=== PATIENT | female | born 1935 | race Two or more races ===

== ENCOUNTER 2023-11-27 21:33 | Inpatient (IN) | payer MEDICARE, OTHER ==
[~2023-11-27] VITALS: Ht 165.1 cm; Wt 60.8 kg
[2023-11-27 22:14] LABS: BASOPHILS % (AUTO) 0.7 % (0.0-2.0); EOSINOPHILS # (AUTO) 0.2 K/uL (0.0-0.7); EOSINOPHILS % (AUTO) 4.2 % (0.0-6.0); HEMATOCRIT 30 % (33-45); HEMOGLOBIN 9.3 g/dL (11.5-14.8); LYMPHOCYTES # (AUTO) 1.1 K/uL (0.8-4.8); LYMPHOCYTES % (AUTO) 19.6 % (20.0-44.0); MEAN CORPUSCULAR HEMOGLOBIN 22 PG (26.0-33.0); MEAN CORPUSCULAR HGB CONC 31 g/dl (31.0-36.0); MEAN CORPUSCULAR VOLUME 70 fL (82-100); MONOCYTES # (AUTO) 0.5 K/uL (0.1-1.30); MONOCYTES % (AUTO) 8.5 % (2.0-12.0); NEUTROPHILS # (AUTO) 3.7 K/uL (1.8-8.9); PLATELET COUNT (AUTO) 265 K/uL (150-450); RED BLOOD CELL COUNT(AUTO) 4.29 MIL/uL (4.0-5.2); RED CELL DISTRIBUTION WIDTH 17.5 % (11.5-15.0); WHITE BLOOD COUNT (AUTO) 5.6 K/uL (4.3-11.0)
[2023-11-27 22:30] LABS: CALCIUM, SERUM 8.5 mg/dL (8.5-10.1); CARBON DIOXIDE 31 mmol/L (21-32); CHLORIDE 108 mmol/L (98-107); CREATININE 0.8 mg/dL (0.6-1.3); GLUCOSE 101 mg/dL (74-106); POTASSIUM 4.8 mmol/L (3.5-5.1); SODIUM SERUM 142 mmol/L (136-145); UREA NITROGEN, BLOOD 24 mg/dL (7-18)
[2023-11-27 22:37] LABS: INR 1.21 (0.91-1.10); PARTIAL THROMBOPLASTIN TIME 33.6 SEC (24.3-34.3); PROTHROMBIN TIME 12.4 SECS (9.2-11.1); SERUM AMMONIA 17 umol/L (11-32)
[2023-11-27 22:38] LABS: LACTIC ACID 0.9 mmol/L (0.4-2.0)
[2023-11-27 22:45] LABS: ACETAMINOPHEN 1 ug/ml (10-30); ALANINE AMINOTRANSFERASE 19 U/L (12-78); ALBUMIN 2.1 g/dL (3.4-5.0); ALCOHOL, BLOOD < 3 mg/dL (0-10); ALKALINE PHOSPHATASE 131 U/L (46-116); ASPARTATE AMINOTRANSFERASE 16 U/L (15-37); BILIRUBIN,DIRECT 0.1 mg/dL (0.0-0.2); BILIRUBIN,TOTAL 0.4 mg/dL (0.2-1.0); SALICYLATE 0.5 mg/dL (2.8-20.0); TOTAL PROTEIN, SERUM 5.8 g/dL (6.4-8.2)
[2023-11-27 23:58] LABS: ABG BASE EXCESS 4.2 mmol/L; ABG OXYGEN SATURATION 94.4 % (92.0-98.5); ABG PCO2 41.4 mmHg (35.0-45.0); ABG PH 7.455 (7.350-7.450); ABG PO2 71.7 mmHg (75.0-100.0); ABG TOTAL HEMOGLOBIN 9.6 G/dL (12.0-16.0); COHb 0.3 % (0.5-1.5); MetHb 0.4 % (0.0-1.5); O2Hb 93.7 % (94.0-97.0); SITE, ABG Left Radial
[2023-11-28] VITALS (73 sets, daily range): BP systolic 80–128; BP diastolic 48–95; TEMP 97.6–99.1; O2SAT 92–100
[2023-11-28] MEDS: IV NS 0.9% 1,000 ML IV ONE (00:27)
[2023-11-28 00:29] LABS: APPEARANCE,URINE CLEAR (CLEAR); BILIRUBIN,URINE NEGATIVE (NEGATIVE); BLOOD, URINE NEGATIVE Ery/uL (NEGATIVE); COLOR,URINE YELLOW (YELLOW); KETONES,URINE NEGATIVE (NEGATIVE); LEUKOCYTE ESTERASE ,URINE 1+ (NEGATIVE); NITRITE, URINE NEGATIVE (NEGATIVE); PROTEIN,URINE NEGATIVE (NEGATIVE); UGLUCOSE NEGATIVE (NEGATIVE); UROBILINOGEN,URINE 0.2 EU/dL (0.2)
[2023-11-28 00:32] LABS: ADD URINE CULTURE YES; BACTERIA,URINE Rare /HPF (None Seen); SQUAMOUS EPITHELIAL CELL,UR Few /HPF (None Seen)
[2023-11-28 00:36] LABS: AMPHETAMINE, URINE NEGATIVE (NEGATIVE); BARBITURATE, URINE NEGATIVE (NEGATIVE); BENZODIAZEPINE, URINE NEGATIVE (NEGATIVE); CANNABINOID, URINE NEGATIVE (NEGATIVE); COCCAINE, URINE NEGATIVE (NEGATIVE); OPIATE, URINE NEGATIVE (NEGATIVE); PHENCYCLIDINE SCREEN,URINE NEGATIVE (NEGATIVE)
[2023-11-28] MEDS ORDERED: NOREPINEPHRINE 8MG/250ML RTU 250 ML IV ONE (01:40)
[2023-11-28] MEDS ORDERED: NOREPINEPHRINE 8 MG in IV D5W 242 ML IV PRN ×2 (02:00→02:30)
[2023-11-28] MEDS ORDERED: ONDANSETRON HCL/PF 4 MG/2 ML VIAL IVP PRN (02:30)
[2023-11-28] MEDS ORDERED: MAGNESIUM HYDROXIDE 30 ML UDC PO PRN (02:30)
[2023-11-28] MEDS ORDERED: MAG HYDROX/AL HYDROX/SIMETH 30 ML UDC PO PRN (02:30)
[2023-11-28] MEDS ORDERED: Z GUARD REMEDY 4 OZ OINT TP PRN (02:30)
[2023-11-28] MEDS ORDERED: LOSA25TA27 GT (02:43)
[2023-11-28] MEDS ORDERED: ASCO-352 GT (02:43)
[2023-11-28] MEDS ORDERED: LORA-259 GT (02:43)
[2023-11-28] MEDS ORDERED: CHLO473M5 PO (02:43)
[2023-11-28] MEDS ORDERED: DOCU100C36 GT (02:43)
[2023-11-28] MEDS ORDERED: FERR220S2 GT (02:43)
[2023-11-28] MEDS ORDERED: APIX2.5T GT (02:43)
[2023-11-28] MEDS ORDERED: METO25TA6 GT (02:43)
[2023-11-28] MEDS ORDERED: MIRT7.5T10 GT (02:43)
[2023-11-28] MEDS ORDERED: MELA5TAB21 GT (02:43)
[2023-11-28] MEDS ORDERED: FURO-145 GT (02:43)
[2023-11-28] MEDS ORDERED: DIGO125T GT (02:43)
[2023-11-28] MEDS ORDERED: MULT1CAP44 GT (02:43)
[2023-11-28] MEDS ORDERED: FOLI0.4T6 GT (02:43)
[2023-11-28] MEDS ORDERED: CRAN250C GT (02:43)
[2023-11-28] MEDS ORDERED: CHOL5POW GT (02:43)
[2023-11-28] MEDS ORDERED: PANT40TA49 GT (02:43)
[2023-11-28] MEDS ORDERED: PIPERACI/TAZO 3.375GM/D5W 50ML PB IV ONE (02:56)
[2023-11-28] MEDS: ZOSYN IVPB 3.375 G in IV D5W 50ml IV ONE (02:57)
[2023-11-28] MEDS ORDERED: VANCOMYCIN 1 GM /D5W 250 ML PB IV ONE (03:51)
[2023-11-28] MEDS: VANCOMYCIN 1 GM in IV D5W 250ml IV ONE (03:53)
[2023-11-28] MEDS: PHENYLEPHRINE 10 MG/ML VIAL ONE (05:25)
[2023-11-28] MEDS: PHENYLEPHRINE 50 MG in IV NS 0.9% 245 ML IV PRN (05:34)
[2023-11-28] MEDS: LOSARTAN POTASSIUM 25 MG TABLET GT SCH (08:48)
[2023-11-28] MEDS: METOPROLOL TARTRATE 25 MG TABLET PO SCH ×2 (08:48→21:00)
[2023-11-28] MEDS: DIGOXIN 0.125 MG TABLET GT SCH (08:56)
[2023-11-28] MEDS: FUROSEMIDE 20 MG TABLET GT SCH (08:57)
[2023-11-28] MEDS: APIXABAN 2.5 MG TABLET GT SCH ×2 (08:57→21:09)
[2023-11-28] MEDS: FOLIC ACID 1 MG TABLET GT SCH (08:57)
[2023-11-28] MEDS: FERROUS SULFATE UDC 300 MG/5 ML UDC GT SCH (08:57)
[2023-11-28] MEDS: MULTIVIT W/MINERALS 1 TAB TABLET GT SCH (08:57)
[2023-11-28] MEDS: CHOLESTYRAMINE/ASPARTAME 4 G/PKT PACKET GT SCH (08:57)
[2023-11-28] MEDS: ASCORBIC ACID 500 MG TABLET GT SCH (08:57)
[2023-11-28] MEDS ORDERED: Medication Not On Formulary EA (Cranberry Extract (Cranberry) 450 MG) GT SCH (09:00)
[2023-11-28] MEDS: CHLORHEXIDINE GLUCONATE 15 ML UDC MM SCH ×2 (09:07→21:10)
[2023-11-28] MEDS ORDERED: BISA10SU11 RC (09:21)
[2023-11-28] MEDS ORDERED: ACET325T53 GT (09:21)
[2023-11-28] MEDS ORDERED: ALBU2.5V38 IH (09:21)
[2023-11-28] MEDS ORDERED: ACET-73 GT (09:21)
[2023-11-28] MEDS ORDERED: PANT40SU2 GT (09:21)
[2023-11-28 12:14] LABS: CALCIUM, SERUM 9.3 mg/dL (8.5-10.1); CARBON DIOXIDE 23 mmol/L (21-32); CHLORIDE 104 mmol/L (98-107); GLUCOSE 102 mg/dL (74-106); POTASSIUM 4.5 mmol/L (3.5-5.1); SODIUM SERUM 140 mmol/L (136-145); UREA NITROGEN, BLOOD 22 mg/dL (7-18)
[2023-11-28 12:15] LABS: CREATININE 0.7 mg/dL (0.6-1.3)
[2023-11-28 12:50] LABS: IRON, SERUM 17 ug/dl (50-175); TOTAL IRON BINDING CAPACITY 222 ug/dl (250-450)
[2023-11-28] MEDS ORDERED: PIPERACILLIN /TAZOBACTAM 3.375 G in IV D5W 50 ML IV SCH (13:00)
[2023-11-28 13:44] LABS: FERRITIN 290 ng/mL (8-388)
[2023-11-28] MEDS: HYDROCORTISONE SOD SUCCINATE 100 MG/2 ML VIAL IV SCH (13:49)
[2023-11-28] MEDS: PIPERACILLIN /TAZOBACTAM 3.375 G in IV D5W 100 ML IV SCH (13:50)
[2023-11-28] MEDS: IV D5/0.45 NACL 1,000 ML IV SCH (14:30)
[2023-11-28] MEDS ORDERED: MIRTAZAPINE 15 MG TABLET GT SCH (18:00)
[2023-11-28] MEDS: MIRTAZAPINE 15 MG TABLET GT SCH (21:00)
[2023-11-28] MEDS: DOCUSATE SODIUM LIQ 100 MG/10 ML UDC GT SCH (21:15)
[2023-11-28] MEDS ORDERED: MELATONIN 3 MG TABLET GT SCH (22:00)
[2023-11-28] MEDS ORDERED: DOCUSATE SODIUM 100 MG CAPSULE PO SCH (22:00)
[2023-11-29] VITALS (37 sets, daily range): BP systolic 87–115; BP diastolic 54–87; TEMP 98.1–99.4; O2SAT 93–100
[2023-11-29] MEDS: ACETAMINOPHEN 650 MG/SUPP.RECT RC PRN (03:37)
[2023-11-29] MEDS: VANCOMYCIN 1 GM in IV D5W 250ml IV SCH (03:38)
[2023-11-29 04:44] LABS: BASOPHILS % (AUTO) 0.2 % (0.0-2.0); HEMATOCRIT 29 % (33-45); HEMOGLOBIN 9.2 g/dL (11.5-14.8); LYMPHOCYTES # (AUTO) 0.9 K/uL (0.8-4.8); MEAN CORPUSCULAR HEMOGLOBIN 22 PG (26.0-33.0); MEAN CORPUSCULAR HGB CONC 32 g/dl (31.0-36.0); MEAN CORPUSCULAR VOLUME 70 fL (82-100); MONOCYTES # (AUTO) 0.1 K/uL (0.1-1.30); MONOCYTES % (AUTO) 2.5 % (2.0-12.0); NEUTROPHILS # (AUTO) 2.7 K/uL (1.8-8.9); NEUTROPHILS % (AUTO) 73.3 % (43.0-81.0); PLATELET COUNT (AUTO) 258 K/uL (150-450); RED BLOOD CELL COUNT(AUTO) 4.13 MIL/uL (4.0-5.2); RED CELL DISTRIBUTION WIDTH 17.8 % (11.5-15.0); WHITE BLOOD COUNT (AUTO) 3.7 K/uL (4.3-11.0)
[2023-11-29 05:35] LABS: CALCIUM, SERUM 8.7 mg/dL (8.5-10.1); CARBON DIOXIDE 25 mmol/L (21-32); CHLORIDE 106 mmol/L (98-107); CREATININE 0.9 mg/dL (0.6-1.3); GLUCOSE 142 mg/dL (74-106); MAGNESIUM 2.2 mg/dL (1.8-2.4); PHOSPHORUS 4.4 mg/dL (2.5-4.9); POTASSIUM 4.9 mmol/L (3.5-5.1); SODIUM SERUM 138 mmol/L (136-145); UREA NITROGEN, BLOOD 31 mg/dL (7-18)
[2023-11-29] MEDS: JEVITY 1.2 CAL 1,000 ML BOTTLE GT SCH (09:44)
[2023-11-30] VITALS (21 sets, daily range): BP systolic 91–117; BP diastolic 41–90; TEMP 97.3–98.7; O2SAT 99–100
[2023-11-30 04:29] LABS: BASOPHILS % (AUTO) 0.3 % (0.0-2.0); HEMATOCRIT 30 % (33-45); HEMOGLOBIN 9.2 g/dL (11.5-14.8); LYMPHOCYTES # (AUTO) 0.7 K/uL (0.8-4.8); LYMPHOCYTES % (AUTO) 12.6 % (20.0-44.0); MEAN CORPUSCULAR HEMOGLOBIN 22 PG (26.0-33.0); MEAN CORPUSCULAR HGB CONC 31 g/dl (31.0-36.0); MEAN CORPUSCULAR VOLUME 70 fL (82-100); MONOCYTES # (AUTO) 0.2 K/uL (0.1-1.30); MONOCYTES % (AUTO) 3.6 % (2.0-12.0); NEUTROPHILS # (AUTO) 4.7 K/uL (1.8-8.9); NEUTROPHILS % (AUTO) 83.5 % (43.0-81.0); PLATELET COUNT (AUTO) 275 K/uL (150-450); RED CELL DISTRIBUTION WIDTH 17.9 % (11.5-15.0); WHITE BLOOD COUNT (AUTO) 5.6 K/uL (4.3-11.0)
[2023-11-30 04:57] LABS: CALCIUM, SERUM 8.4 mg/dL (8.5-10.1); CARBON DIOXIDE 25 mmol/L (21-32); CHLORIDE 103 mmol/L (98-107); CREATININE 1.1 mg/dL (0.6-1.3); GLUCOSE 181 mg/dL (74-106); MAGNESIUM 2.2 mg/dL (1.8-2.4); PHOSPHORUS 4.3 mg/dL (2.5-4.9); SODIUM SERUM 138 mmol/L (136-145); UREA NITROGEN, BLOOD 42 mg/dL (7-18)
[2023-11-30] MEDS: LORAZEPAM 1 MG TABLET GT PRN (12:55)
[2023-12-01] VITALS (30 sets, daily range): BP systolic 80–131; BP diastolic 48–96; TEMP 97.9–98.6; O2SAT 97–100
[2023-12-01 07:32] LABS: BASOPHILS % (AUTO) 0.1 % (0.0-2.0); HEMATOCRIT 31 % (33-45); HEMOGLOBIN 9.6 g/dL (11.5-14.8); LYMPHOCYTES % (AUTO) 12.1 % (20.0-44.0); MEAN CORPUSCULAR HEMOGLOBIN 22 PG (26.0-33.0); MEAN CORPUSCULAR HGB CONC 32 g/dl (31.0-36.0); MEAN CORPUSCULAR VOLUME 70 fL (82-100); MONOCYTES # (AUTO) 0.8 K/uL (0.1-1.30); MONOCYTES % (AUTO) 9.5 % (2.0-12.0); NEUTROPHILS # (AUTO) 6.4 K/uL (1.8-8.9); NEUTROPHILS % (AUTO) 78.3 % (43.0-81.0); PLATELET COUNT (AUTO) 270 K/uL (150-450); RED BLOOD CELL COUNT(AUTO) 4.36 MIL/uL (4.0-5.2); RED CELL DISTRIBUTION WIDTH 17.5 % (11.5-15.0); WHITE BLOOD COUNT (AUTO) 8.2 K/uL (4.3-11.0)
[2023-12-01 07:41] LABS: CALCIUM, SERUM 8.3 mg/dL (8.5-10.1); CARBON DIOXIDE 28 mmol/L (21-32); CHLORIDE 102 mmol/L (98-107); GLUCOSE 157 mg/dL (74-106); POTASSIUM 4.6 mmol/L (3.5-5.1); SODIUM SERUM 137 mmol/L (136-145); UREA NITROGEN, BLOOD 40 mg/dL (7-18)
[2023-12-01] MEDS: IV NS 0.9% 500 ML BAG IV ONE (16:16)
[2023-12-02] VITALS (58 sets, daily range): BP systolic 87–125; BP diastolic 56–88; TEMP 98.3–98.6; O2SAT 96–100
[2023-12-02 07:51] LABS: BASOPHILS % (AUTO) 0.3 % (0.0-2.0); EOSINOPHILS # (AUTO) 0.1 K/uL (0.0-0.7); EOSINOPHILS % (AUTO) 0.6 % (0.0-6.0); HEMATOCRIT 33 % (33-45); HEMOGLOBIN 10.3 g/dL (11.5-14.8); LYMPHOCYTES # (AUTO) 2.5 K/uL (0.8-4.8); LYMPHOCYTES % (AUTO) 24.8 % (20.0-44.0); MEAN CORPUSCULAR HEMOGLOBIN 22 PG (26.0-33.0); MEAN CORPUSCULAR HGB CONC 32 g/dl (31.0-36.0); MEAN CORPUSCULAR VOLUME 71 fL (82-100); MONOCYTES # (AUTO) 1.3 K/uL (0.1-1.30); MONOCYTES % (AUTO) 13.1 % (2.0-12.0); NEUTROPHILS # (AUTO) 6.2 K/uL (1.8-8.9); NEUTROPHILS % (AUTO) 61.2 % (43.0-81.0); PLATELET COUNT (AUTO) 390 K/uL (150-450); RED BLOOD CELL COUNT(AUTO) 4.64 MIL/uL (4.0-5.2); RED CELL DISTRIBUTION WIDTH 18.3 % (11.5-15.0); WHITE BLOOD COUNT (AUTO) 10.2 K/uL (4.3-11.0)
[2023-12-02 09:44] LABS: ANISOCYTOSIS 1+; EOSINOPHILS % (MANUAL) 1 % (0-4); HYPOCHROMASIA 1+; LYMPHOCYTES % (MANUAL) 25 % (16-48); MONOCYTES % (MANUAL) 13 % (0-11.0); NEUTROPHILS % (MANUAL) 61 (42-76); PLATELET ESTIMATE ADEQUATE
[2023-12-02 09:45] LABS: OVALOCYTES 1+
[2023-12-02 11:59] LABS: CALCIUM, SERUM 7.7 mg/dL (8.5-10.1); CARBON DIOXIDE 27 mmol/L (21-32); CHLORIDE 103 mmol/L (98-107); CREATININE 0.9 mg/dL (0.6-1.3); GLUCOSE 109 mg/dL (74-106); POTASSIUM 4.4 mmol/L (3.5-5.1); SODIUM SERUM 138 mmol/L (136-145); UREA NITROGEN, BLOOD 38 mg/dL (7-18)
[2023-12-02] MEDS: HYDROCORTISONE SOD SUCCINATE 100 MG/2 ML VIAL IV SCH (12:32)
[2023-12-03] VITALS (33 sets, daily range): BP systolic 87–120; BP diastolic 50–84; TEMP 97.1–98.6; O2SAT 94–100
[2023-12-03 05:10] LABS: HEMATOCRIT 32 % (33-45); HEMOGLOBIN 9.7 g/dL (11.5-14.8); LYMPHOCYTES # (AUTO) 1.2 K/uL (0.8-4.8); LYMPHOCYTES % (AUTO) 22.4 % (20.0-44.0); MEAN CORPUSCULAR HEMOGLOBIN 22 PG (26.0-33.0); MEAN CORPUSCULAR HGB CONC 31 g/dl (31.0-36.0); MEAN CORPUSCULAR VOLUME 72 fL (82-100); MONOCYTES # (AUTO) 0.1 K/uL (0.1-1.30); MONOCYTES % (AUTO) 2.7 % (2.0-12.0); NEUTROPHILS # (AUTO) 3.9 K/uL (1.8-8.9); NEUTROPHILS % (AUTO) 74.9 % (43.0-81.0); PLATELET COUNT (AUTO) 259 K/uL (150-450); RED BLOOD CELL COUNT(AUTO) 4.43 MIL/uL (4.0-5.2); RED CELL DISTRIBUTION WIDTH 18.2 % (11.5-15.0); WHITE BLOOD COUNT (AUTO) 5.3 K/uL (4.3-11.0)
[2023-12-03 07:57] LABS: CALCIUM, SERUM 7.6 mg/dL (8.5-10.1); CARBON DIOXIDE 20 mmol/L (21-32); CHLORIDE 104 mmol/L (98-107); CREATININE 0.9 mg/dL (0.6-1.3); GLUCOSE 160 mg/dL (74-106); POTASSIUM 5.1 mmol/L (3.5-5.1); SODIUM SERUM 134 mmol/L (136-145); UREA NITROGEN, BLOOD 41 mg/dL (7-18)
[2023-12-04] VITALS: BP 119/78; TEMP 98.1; O2SAT 100
[2023-12-04] MEDS: IV NS 0.9% 1,000 ML IV PRN (02:20)
[2023-12-04 04:00] VITALS: BP 139/86; TEMP 97.9; O2SAT 100
[2023-12-04 08:00] VITALS: BP 122/83; TEMP 97.5; O2SAT 99
[2023-12-04 12:00] VITALS: BP 108/76; TEMP 97.7; O2SAT 99
[2023-12-04 16:00] VITALS: BP 131/80; TEMP 98.2; O2SAT 97
[2023-12-04 20:00] VITALS: BP 111/67; TEMP 98.1; O2SAT 99
[2023-12-05] VITALS: BP 103/72; TEMP 97.7; O2SAT 97
[2023-12-05 04:00] VITALS: BP 121/74; TEMP 98; O2SAT 98
[2023-12-05 07:14] LABS: BASOPHILS % (AUTO) 0.2 % (0.0-2.0); HEMATOCRIT 31 % (33-45); HEMOGLOBIN 9.9 g/dL (11.5-14.8); LYMPHOCYTES # (AUTO) 0.7 K/uL (0.8-4.8); LYMPHOCYTES % (AUTO) 10.8 % (20.0-44.0); MEAN CORPUSCULAR HEMOGLOBIN 22 PG (26.0-33.0); MEAN CORPUSCULAR HGB CONC 32 g/dl (31.0-36.0); MEAN CORPUSCULAR VOLUME 70 fL (82-100); MONOCYTES # (AUTO) 0.2 K/uL (0.1-1.30); MONOCYTES % (AUTO) 3.3 % (2.0-12.0); NEUTROPHILS # (AUTO) 5.4 K/uL (1.8-8.9); NEUTROPHILS % (AUTO) 85.7 % (43.0-81.0); PLATELET COUNT (AUTO) 248 K/uL (150-450); RED BLOOD CELL COUNT(AUTO) 4.46 MIL/uL (4.0-5.2); RED CELL DISTRIBUTION WIDTH 18.1 % (11.5-15.0); WHITE BLOOD COUNT (AUTO) 6.3 K/uL (4.3-11.0)
[2023-12-05 07:39] LABS: CARBON DIOXIDE 24 mmol/L (21-32); CHLORIDE 104 mmol/L (98-107); GLUCOSE 140 mg/dL (74-106); POTASSIUM 3.9 mmol/L (3.5-5.1); SODIUM SERUM 137 mmol/L (136-145); UREA NITROGEN, BLOOD 39 mg/dL (7-18)
[2023-12-05 08:00] VITALS: BP 96/70; TEMP 98; O2SAT 98
[2023-12-05 10:16] LABS: EOSINOPHILS % (MANUAL) 0 % (0-4); LYMPHOCYTES % (MANUAL) 8 % (16-48); MONOCYTES % (MANUAL) 0 % (0-11.0); NEUTROPHILS % (MANUAL) 91 (42-76); PLATELET ESTIMATE ADEQUATE; REACTIVE LYMPHOCYTES 1 % (0-0)
[2023-12-05 12:00] VITALS: BP 121/88; TEMP 97.9; O2SAT 100
[2023-12-05 16:00] VITALS: BP 115/76; TEMP 97.9; O2SAT 100
[2023-12-05] MEDS ORDERED: ANESTHESIA TRAY IN PYXIS 1 EA TRAY MC ONE (16:10)
[2023-12-05] MEDS: HYDROCORTISONE SOD SUCCINATE 100 MG/2 ML VIAL IV SCH (17:00)
[2023-12-05] MEDS: IV NS 0.9% 1,000 ML IV PRN (17:06)
[2023-12-05 20:00] VITALS: BP 128/89; TEMP 98.9; O2SAT 100
[2023-12-05] MEDS: PANTOPRAZOLE 40 MG VIAL IV ONE (21:39)
[2023-12-05] MEDS: GLUCERNA 1.2 1,000 ML BOTTLE NG PRN (21:47)
[2023-12-06] VITALS (7 sets, daily range): BP systolic 108–122; BP diastolic 61–86; TEMP 96.8–98.9; O2SAT 93–99
[2023-12-06 03:30] LABS: CALCIUM, SERUM 7.8 mg/dL (8.5-10.1); CARBON DIOXIDE 26 mmol/L (21-32); CHLORIDE 106 mmol/L (98-107); GLUCOSE 114 mg/dL (74-106); POTASSIUM 3.4 mmol/L (3.5-5.1); SODIUM SERUM 138 mmol/L (136-145); UREA NITROGEN, BLOOD 39 mg/dL (7-18)
[2023-12-06] MEDS: PANTOPRAZOLE 40 MG VIAL IV SCH (09:14)
[2023-12-06] MEDS: POTASSIUM CL. PREMIX PERIPHER. 50 ML IV SCH (10:10)
[2023-12-06] MEDS: VANCOMYCIN 1 GM in IV D5W 250ml IV SCH (17:36)
[2023-12-06] MEDS ORDERED: MAGNESIUM HYDROXIDE 30 ML UDC GT PRN (17:41)
[2023-12-06] MEDS ORDERED: MAG HYDROX/AL HYDROX/SIMETH 30 ML UDC GT PRN (17:41)
[2023-12-07] VITALS: BP 118/70; TEMP 98; O2SAT 98
[2023-12-07 04:00] VITALS: BP 123/70; TEMP 98.2; O2SAT 98
[2023-12-07 07:29] VITALS: O2SAT 100
[2023-12-07 07:59] LABS: BASOPHILS % (AUTO) 0.3 % (0.0-2.0); EOSINOPHILS % (AUTO) 0.3 % (0.0-6.0); HEMATOCRIT 32 % (33-45); HEMOGLOBIN 9.9 g/dL (11.5-14.8); LYMPHOCYTES # (AUTO) 1.2 K/uL (0.8-4.8); LYMPHOCYTES % (AUTO) 11.8 % (20.0-44.0); MEAN CORPUSCULAR HEMOGLOBIN 22 PG (26.0-33.0); MEAN CORPUSCULAR HGB CONC 31 g/dl (31.0-36.0); MEAN CORPUSCULAR VOLUME 71 fL (82-100); MONOCYTES # (AUTO) 0.9 K/uL (0.1-1.30); MONOCYTES % (AUTO) 8.2 % (2.0-12.0); NEUTROPHILS # (AUTO) 8.4 K/uL (1.8-8.9); NEUTROPHILS % (AUTO) 79.4 % (43.0-81.0); PLATELET COUNT (AUTO) 196 K/uL (150-450); RED BLOOD CELL COUNT(AUTO) 4.51 MIL/uL (4.0-5.2); RED CELL DISTRIBUTION WIDTH 18.9 % (11.5-15.0); WHITE BLOOD COUNT (AUTO) 10.6 K/uL (4.3-11.0)
[2023-12-07 08:00] VITALS: BP 126/64; TEMP 97.9; O2SAT 98
[2023-12-07 08:14] LABS: CALCIUM, SERUM 7.3 mg/dL (8.5-10.1); CARBON DIOXIDE 23 mmol/L (21-32); CHLORIDE 108 mmol/L (98-107); CREATININE 0.9 mg/dL (0.6-1.3); GLUCOSE 133 mg/dL (74-106); MAGNESIUM 2.1 mg/dL (1.8-2.4); PHOSPHORUS 2.9 mg/dL (2.5-4.9); POTASSIUM 3.5 mmol/L (3.5-5.1); SODIUM SERUM 141 mmol/L (136-145); UREA NITROGEN, BLOOD 33 mg/dL (7-18)
[2023-12-07 12:00] VITALS: BP 135/65; TEMP 97.3; O2SAT 100
[2023-12-07] MEDS ORDERED: DOXY-326 PO (13:26)
[2023-12-07] MEDS ORDERED: AMOX-427 PO (13:26)
[2023-12-07] MEDS ORDERED: HYDR-4316 PO (13:31)
== END 2023-12-07 14:16 | DRG 870 ==
LOC: ER 21:35 → ICU 11-28 01:59 → TELE1 11-30 16:32 → ICU 12-01 17:28 → TELE1 12-03 17:26
PROVIDERS: ATTEND Nurse Practitioner Acute Care
PROC: 5A1955Z Respiratory Ventilation, Greater than 96 Consecutive Hours (ICD-10-PCS; principal; 2023-11-28)
PROC: 0DH63UZ Insertion of Feeding Device into Stomach, Percutaneous Approach (ICD-10-PCS; 2023-12-05)
DX: A41.9 Sepsis, unspecified organism (principal); J96.21 Acute and chronic respiratory failure with hypoxia; G93.41 Metabolic encephalopathy; E43 Unspecified severe protein-calorie malnutrition; I50.43 Acute on chronic combined systolic (congestive) and diastolic (congestive) heart failure; N18.6 End stage renal disease; I13.2 Hypertensive heart and chronic kidney disease with heart failure and with stage 5 chronic kidney disease, or end stage renal disease; D68.59 Other primary thrombophilia; K94.23 Gastrostomy malfunction; F01.53 Vascular dementia, unspecified severity, with mood disturbance; F01.54 Vascular dementia, unspecified severity, with anxiety; R57.9 Shock, unspecified; J90 Pleural effusion, not elsewhere classified; J98.11 Atelectasis; N17.9 Acute kidney failure, unspecified; Z99.11 Dependence on respirator [ventilator] status; K62.89 Other specified diseases of anus and rectum; K29.70 Gastritis, unspecified, without bleeding; I48.91 Unspecified atrial fibrillation; K26.9 Duodenal ulcer, unspecified as acute or chronic, without hemorrhage or perforation; Y83.3 Surgical operation with formation of external stoma as the cause of abnormal reaction of the patient, or of later complication, without mention of misadventure at the time of the procedure; Y92.129 Unspecified place in nursing home as the place of occurrence of the external cause; R13.10 Dysphagia, unspecified; Z74.01 Bed confinement status; F41.9 Anxiety disorder, unspecified; F32.A Depression, unspecified; F39 Unspecified mood [affective] disorder; I25.10 Atherosclerotic heart disease of native coronary artery without angina pectoris; I27.20 Pulmonary hypertension, unspecified; J44.9 Chronic obstructive pulmonary disease, unspecified; Z79.01 Long term (current) use of anticoagulants; Z79.899 Other long term (current) drug therapy; M20.41 Other hammer toe(s) (acquired), right foot; E86.0 Dehydration; D50.9 Iron deficiency anemia, unspecified; E88.09 Other disorders of plasma-protein metabolism, not elsewhere classified; E78.5 Hyperlipidemia, unspecified; M89.8X9 Other specified disorders of bone, unspecified site
CPT/HCPCS: 31720; 36415; 36600; 43246; 70450-TC; 71045-TC; 71250-TC; 76604-TC; 80048-TC; 80076-TC; 80202-TC; 81001; 82140-TC; 82533; 82728-TC; 82803-TC; 82962-TC; 83540-TC; 83605-TC; 83735-TC; 84100-TC; 84443-TC; 84484-TC; 85025-TC; 85730-TC; 87040-TC; 87081-TC; 87086-TC; 93307-TC; 93970-TC; 93971-TC; 94002-TC; 94003-TC; 94760-TC; 94761-TC; 94762-TC; 94799-TC; 99082-TC; A4223; A4623; A6403; A7526; G0378; G0480; J0330; J1720; J2470; J2543; J2704; J3370; J3480; J3490; J7030; J7040; J7050; J7060